=== PATIENT | male | born 1940 | race Caucasian/White ===

== ENCOUNTER 2017-02-14 07:56 | Inpatient (IN) | payer MEDICARE ==
--- NOTE | ~2017-02-14 | CN ---
Consultation Report [facility] [address] [place]. [address] NAME: RAFAELA HERNDON : 40 STATUS : ADM IN PAT#: [id number] AGE: 76 ADM/REG DATE : 02/14/17 MR#: [id number] REPORT SERV DATE: 02/15/17 DICTATED BY: DUSTY ZAVALETA DATE: 02/14/17 REPORT STATUS : Draft TRANSCRIBED BY: MODL DATE: 02/14/17 CONSULTATION NOTE DATE OF CONSULTATION: 02/14/2017 REASON FOR CONSULTATION: Coronary artery disease, severe aortic stenosis with recent near syncopal episode. ATTENDING INFLATABLE BUILDINGS LAMINATOR: Sesar Drew M.D. CHIEF COMPLAINT: "I nearly passed out." HISTORY OF PRESENT ILLNESS: This is a 76-year-old very active gentleman who has known history of coronary artery disease, previous myocardial infarction in 2011, aortic stenosis, and anxiety disorder. He has had recent increase in his symptoms and was referred for echocardiogram, which was abnormal showing severe aortic stenosis. He also had carotid ultrasound that did not show any significant carotid disease. He underwent coronary arteriogram today that demonstrated a tight proximal stenosis of the left anterior descending and the diagonal branch. His other coronaries did not have any flow-limiting or obstructive disease. We were asked to see for urgent coronary artery bypass grafting as well as aortic valve replacement, this was discussed with the patient and his family by Dr. Sotelo today. PRIOR MEDICAL HISTORY: 1. Hypertension. 2. Hypercholesterolemia. 3. Gastroesophageal reflux disease. 4. Hard of hearing. 5. Prior elevation myocardial infarction in 2011. 6. Hyperlipidemia. PRIOR SURGICAL HISTORY: Prior heart catheterization in 2011. ALLERGIES: NONE KNOWN. MEDICATIONS AT HOME: Include amlodipine 10 mg p.o. daily, aspirin 81 mg p.o. b.i.d., atorvastatin 20 mg p.o. q.a.m., hydrochlorothiazide 25 mg p.o. daily, melatonin 5 mg p.o. at h.s., nitroglycerin 0.4 mg sublingual p.r.n., Prilosec 20 mg p.o. daily, and Zoloft 100 mg p.o. daily. FAMILY HISTORY: Significant for father with hypertension, hypercholesterolemia, at age 52; mother with hypertension, high cholesterol, at age 48; and two brothers and three sisters who had heart disease, hypertension, high cholesterol. Consultation Report [facility] [address] [place]. 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 His two daughters are with him today. REVIEW OF SYSTEMS: GENERAL: Negative for any recent weight change, fevers, chills, night sweats, or malaise. HEENT: Positive for recent eye surgeries, hard of hearing, upper dentures, and missing teeth in the lower jaw. NECK: He reports discomfort in his neck after exerting himself, mainly on the right side. CV: Positive for palpitations, heart murmur, aortic stenosis, prior CO, negative for chest pain, syncope, orthopnea, or paroxysmal nocturnal dyspnea. RESPIRATORY: Positive for some shortness of breath. Negative for hemoptysis, wheezing, or chronic cough. GI: Positive for gastroesophageal reflux. Negative for bleeding in stool. Negative for ulcers, constipation, or diarrhea. : Negative. MUSCULOSKELETAL: Positive for back pain and neck pain. Positive for early arthritis. NEUROLOGIC: Negative for stroke. Negative for TIAs or symptoms of amaurosis fugax. HEME/ONC: Positive for skin cancers. Negative for any history of free bleeding, blood clots, or easy bruising. ENDOCRINE: Negative for hypothyroidism or hyperthyroidism. Negative for diabetes. PHYSICAL EXAMINATION: GENERAL: He is a pleasant elderly male, sitting upright in bed, in no acute distress. His height is 175.26 cm and weight 76.31 kg. VITAL SIGNS: Blood pressure 141/64; temperature 97.6; pulse 56 and regular; respirations 18, regular and unlabored; and saturation is 95%. HEENT: Normocephalic and atraumatic. Pupils are equal, round, reactive to light and accommodation. Sclerae are clear. Conjunctivae are pink. Oral and buccal mucosa are pink and moist. He is missing many of his lower teeth. I do not see any abscesses. Mallampati class II airway. NECK: Supple. No restricted range of motion. No carotid bruits, although radiated murmurs heard in both carotids. No jugular venous distention. CHEST: No deformity. Clear to auscultation. No use of accessory muscles. BREASTS: Not examined. CV: Regular rate and rhythm with aortic systolic murmur heard across the precordium, but best in the second intercostal space, right sternal border. He has palpable symmetric central and peripheral pulses. No clubbing, cyanosis, or edema. ABDOMEN: Soft and nontender with normoactive bowel sounds. No hepatosplenomegaly. /RECTAL: Declined. MUSCULOSKELETAL: No kyphoscoliosis. No asymmetry. NEUROLOGIC: He is a good historian. Speech is clear, fluent. No focal deficits. No tremors. DATA: His coronary arteriogram today shows tight flow-limiting disease in the proximal left anterior descending and the proximal diagonal branch. There is echocardiogram showing trace Consultation Report [address] [address] NAME: RAFAELA HERNDON : 40 STATUS : ADM IN [facility]#: [id number] AGE: 76 ADM/REG DATE : 02/14/17 MR#: [id number] REPORT SERV DATE: 02/15/17 DICTATED BY: DUSTY ZAVALETA DATE: 02/14/17 REPORT STATUS : Draft TRANSCRIBED BY: LAURA DATE: 02/14/17 mitral and tricuspid regurgitation, and severe aortic stenosis with aortic valve area of 0.55 by Shelly. His EKG showed sinus rhythm with incomplete right bundle-branch block. His carotid ultrasound shows grade 1 disease bilaterally. CURRENT LABS: Sodium 141, potassium 3.6, chloride 106, CO2 of 27, BUN 19, creatinine 1.1, and nonfasting glucose is 112. His CBC shows WBC 6.3, hemoglobin 15.9 g, hematocrit 46.3%, and platelets 214,000. IMPRESSION: Single vessel flow-limiting coronary artery disease and severe aortic stenosis, with recent near syncopal episode. We were asked to see for possible urgent coronary artery bypass grafting and aortic valve replacement, this was discussed at length with the patient and his family today. We talked about the surgery, usual perioperative course, indications, benefits, and serious risks. These can include but are not limited to, things such as bleeding, infection, pneumonia, blood transfusions and their attendant risks, damage to the kidneys including kidney failure and dialysis, damage to the liver and the lungs, heart attack, stroke, abnormal heart rhythm, need for pacemaker, deep sternal infection, mediastinitis, and even . The patient indicates his understanding and is willing to proceed. Tentative plan includes coronary artery bypass grafting and aortic valve replacement tomorrow. The choice of valve selection was discussed with the patient by Dr. Sotelo. In addition, Society of Thoracic Surgeons Database for risk prediction, predicted mortality risk of 1.6%, morbidity or mortality of 12.8% which are not elevated. We appreciate very much the opportunity to participate in this pleasant gentleman's care. COOPER/LAURA Dusty Zavaleta N.P. / [id number] CC: Jose Dutton M.D.
--- NOTE | ~2017-02-14 | OP ---
Record Of Operation [facility] [address] [place]. [address] NAME: RAFAELA HERNDON : 40 STATUS : ADM IN PAT#: [id number] AGE: 76 ADM/REG DATE : 02/14/17 MR#: [id number] REPORT SERV DATE: 02/18/17 DICTATED BY: CHANCE ARNDT DATE: 02/15/17 REPORT STATUS : Draft TRANSCRIBED BY: MODL DATE: 02/15/17 DATE OF PROCEDURE: ATTENDING PHYSICIAN: Chance Arndt MD. CHEMIST STEROIDS: SONDRA Aiken. ANESTHESIOLOGIST: Dano Carrasco M.D. REFERRING PHYSICIANS: Dr. Anthony Jiang and Dr. Sesar Drew. PREOPERATIVE DIAGNOSES: 1. Critical aortic stenosis. 2. One vessel coronary artery disease. 3. Hypertension. 4. Hyperlipidemia. POSTOPERATIVE DIAGNOSES: 1. Critical aortic stenosis. 2. One vessel coronary artery disease. 3. Hypertension. 4. Hyperlipidemia. OPERATION PROCEDURE PERFORMED: 1. Median sternotomy. 2. Extracorporeal circulation. 3. Aortic valve replacement with 21-mm Magna Ease valve. 4. Coronary artery bypass grafting x2, left internal mammary artery, left anterior descending artery, reverse greater saphenous vein graft to first diagonal. 5. LINCOLN. 6. Endoscopic vein harvest of right leg. COMPLICATIONS: None. TUBES AND DRAINS: Alsmku-swfc-Vufqfg Shawn left pleural space 32 straight mediastinal chest tube. Atrial and ventricular wires. POSTOPERATIVE CONDITION: Stable to CVICU. Total cardiopulmonary bypass time of 136 minutes. Total cross-clamp of 107 minutes. INTRAOPERATIVE FINDINGS: Transesophageal echo showed severe , mild AI, mild MR, EF approximately 60%. Post bypass, well-seated valve, no paravalvular leak. Mean gradient across the valve was 6 mmHg. There was preserved EF with preserved wall motion. ANATOMIC FINDINGS: Tricuspid aortic valve which is heavily calcified aortic valve leaflets and anulus, good ventricle, good conduit, excellent targets. The valve was sized to a 21-mm Record Of Operation [facility] [address] [facility] [place]. [address] NAME: RAFAELA HERNDON : 40 STATUS : ADM IN PAT#: [id number] AGE: 76 ADM/REG DATE : 02/14/17 MR#: [id number] REPORT SERV DATE: 02/18/17 DICTATED BY: CHANCE ARNDT DATE: 02/15/17 REPORT STATUS : Draft TRANSCRIBED BY: MODL DATE: 02/15/17 anulus. This correlated with a 21-mm anulus seen on echo. DETAILS OF VALVE REPLACEMENT: Aortic valve was replaced with 21 mm Anshul-Galeana Magna Ease bovine pericardial valve. The valve was sited in the supra-annular position with total of 16 2-0 pledgeted Ti-Cron sutures secured with Cor-Knots. Fifteen sutures were used initially and then after the valve was seated and all sutures were secured with Cor-Knots, there was one small area along the right coronary cusp that appeared to have the potential for a paravalvular leak. Another suture was placed into this with resolution of the area and this was secured again with a Cor-Knot. DETAILS OF CARDIOPULMONARY BYPASS GRAFTIN. Graft #1, left internal mammary artery, left anterior descending, this was a 2 mm target. There were excellent Doppler signals in the graft both pre and post protamine. 2. Graft #2, reverse greater saphenous vein graft to the first diagonal, this was 2 mm target. There were excellent Doppler signals both pre and post protamine. INDICATIONS FOR PROCEDURE: Mr. Herndon is a 76-year-old gentleman with a history of near syncopal episode from his aortic valve. He was found to have critical aortic stenosis with a valve area of approximately 0.6 cm2 and was brought to the geotechnical laboratory technician in preparation for aortic valve replacement. He was found to have significant left anterior descending and branch point diagonal disease, was kept in the hospital and referred for coronary artery bypass grafting and aortic valve replacement. Risks, benefits, and alternatives were discussed with the patient including, but not limited to bleeding, infection, stroke, , heart attack, need for future operations. All questions were answered. The STS risk was discussed with the patient. Mortality of 1.6% and morbidity mortality of 12.8%. DESCRIPTION OF PROCEDURE: The patient was brought to the operating room and placed supine on the operating table. After satisfactory induction of general endotracheal anesthesia, he was prepped and draped in the usual sterile fashion. Working simultaneously, a median sternotomy was performed while endoscopic vein harvest was performed of the right leg, right thigh. Skin and subcutaneous tissues were divided. Clavipectoral fascia was divided. Sternum was divided in the midline. Sternal retractor was placed. Hemostasis had been obtained. Thymic tissue opened in the midline. Sternum up to the innominate vein. Pericardium was opened in the midline and a long diaphragm. A Rultract retractor was then placed and the internal mammary artery was harvested in a pedicle fashion from its takeoff under the subclavian vein at the bifurcation of the diaphragm. It was infiltrated with papaverine and wrapped in a papaverine soaked sponge. Systemic heparinization was achieved. After three minutes, the pedicle was clipped and divided at the bifurcation of the diaphragm. Hemostasis was obtained. A 24-Kyrgyz Shawn was placed in the left pleural space and exteriorized. Rultract retractor was removed. Sternal retractor was placed. Pericardial well was created. Ascending aorta was cannulated high on the ascending aorta. Dual stage venous cannula was placed. Antegrade root vent cardioplegia tack was placed on the ascending aorta and a coronary sinus catheter was placed in the coronary sinus through a pursestring in the right atrial side wall. Conduit was inspected and prepared for bypass. Internal mammary artery was brought down through a wide V in the pericardium. The cardiopulmonary bypass was initiated after documentation of an adequate ACT. The targets were inspected and felt to be appropriate for bypass. A cross-clamp was brought up and the Record Of Operation [address] [place]. [address] NAME: RAFAELA HERNDON : 40 STATUS : ADM IN [facility]#: [id number] AGE: 76 ADM/REG DATE : 02/14/17 MR#: [id number] REPORT SERV DATE: 02/18/17 DICTATED BY: CHANCE ARNDT DATE: 02/15/17 REPORT STATUS : Draft TRANSCRIBED BY: MODBrock DATE: 02/15/17 heart was arrested with cold antegrade cardioplegia for a total of 800 and 400 mL of retrograde cardioplegia was administered. Intermittent antegrade and retrograde cardioplegia was administered every 15 to 20 minutes throughout the remainder of the cross clamp. Both post groups were performed as mentioned. The distal super was performed as mentioned in the findings. There was excellent flow in the LAD after removal of the bulldog. There was good flow in the LAD and in the mammary. The bulldog was replaced. The pedicle was attached hard in two places and attention was turned to the aortic root. A standard oblique aortotomy was performed. Aortic retraction sutures were placed. The valve was inspected. The valve was trileaflet heavily calcified. The valve leaflets were excised. The calcium was debrided. The anulus was sized. The valve was sized to a 21 mm Magna Ease valve. Fifteen pledgeted valve sutures were placed one in each commissure and four long each cusp. These were then passed through the sewing ring of the Magna Ease bovine pericardial valve and then the valve was lowered into position. Cor-Knots were anchored. The valve was inspected. It was felt to be well seated, however, there was one small area that was felt to potentially have a gap. A suture was then passed from the anulus up to the sewing ring of the valve. Pledgeted suture and then secured with Cor-Knot. This obliterated this area. The aortotomy was then closed in two layers using pledgeted at the corners 4-0 Prolene. An aortotomy was then performed after sweeping off the ascending aorta with a small area of adventitia. This was done with an 11 blade and enlarged with a 5.2 mm punch. The vein was cut to length, spatulated, and a running continuous anastomosis was performed using 6-0 Prolene. Vein graft marker was placed and the graft was de-aired and the cross-clamp was removed. Atrial and ventricular pacing wires were placed. The patient was ultimately able to be weaned from cardiopulmonary bypass in a paced atrial rhythm. The protamine was administered. The patient was decannulated after protamine was administered. All cannulation sites were oversewn with 4-0 Prolene. Hemostasis was obtained. Pericardium was loosely reapproximated over the ascending aorta and the ventricle. The sternum was then re-approximated using stainless steel sternal wires. A 32- Kyrgyz chest tube was then placed under the sternum. Some of these wires were double wires. Clavipectoral fascia was reapproximated using running #1 Stratafix, subcutaneous tissues closed using running #1 Stratafix, and the skin closed using 3-0 Monocryl. Dry sterile dressings were placed. The patient was transferred to the CVICU in critical stable condition. ROSANGELA/MODL Chance Arndt MD / [id number] CC: Jose Dutton M.D. William Warren, M.D.
[~2017-02-14 07:56] MED LIST: ASAB PO; HYDROCHLOROT25 MG PO; LIPITOR20 PO; MELATONIN5 M1 PO; NITROSTAT0.4 MG SL; NORV10 PO; PREV15 PO; PRILO PO; ZOL100 PO
[2017-02-14 08:56] LABS: BUN (BLOOD UREA NITROGEN) 19 MG/DL (6-23); CALCIUM, SERUM 8.9 MG/DL (8.5-10.4); CHLORIDE, SERUM 106 MMOL/L (96-112); CHOL/HDL RATIO(NOT ORDER) 2.5 (0-5); CHOLESTEROL 127 MG/DL (< 200); CO2 (CARBON DIOXIDE) 27 MMOL/L (24-34); GFR AFRICAN AMERICAN 75 ML/MIN (>=60); GFR NON AFRICAN AMERICAN 65 ML/MIN (>=60); GLUCOSE, SERUM 112 MG/DL (60-99); HDL CHOLESTEROL 51 MG/DL (> 39); LDL CHOLESTEROL 62 MG/DL (< 130); NON-HDL CHOLESTEROL 76 MG/DL (< 160); POTASSIUM, SERUM 3.6 MMOL/L (3.5-5.3); SODIUM, SERUM 141 MMOL/L (135-148); TRIGLYCERIDE 70 MG/DL (< 150)
[2017-02-14 09:05] LABS: BASOPHILS 0.5 %; BASOPHILS ABSOLUTE 0.03 10/3/uL (0.0-0.16); EOSINOPHILS ABSOLUTE 0.19 10/3/uL (0.0-0.53); HEMATOCRIT 46.3 % (40.0-51.0); HEMOGLOBIN 15.9 g/dL (13.6-17.8); IMMATURE GRANULOCYTES 0.2 %; IMMATURE GRANULOCYTES ABSOLUTE 0.01 10/3/uL (0.0-0.11); LYMPHOCYTES 36.1 %; LYMPHOCYTES ABSOLUTE 2.29 10/3/uL (0.67-4.30); MEAN CORPUS HGB CONC 34.3 g/dL (32.0-36.0); MEAN CORPUSCULAR HEMOGLOB 30.9 pg (26.0-34.0); MONOCYTES 10.9 %; MONOCYTES ABSOLUTE 0.69 10/3/uL (0.21-1.20); NEUTROPHILS 49.3 %; NEUTROPHILS ABSOLUTE 3.13 10/3/uL (2.02-8.40); PLATELET COUNT 214 10/3/uL (150-400); RBC DISTRIBUTION WIDTH 13.9 % (12.0-16.0); RED CELL COUNT 5.15 10/6/uL (4.7-6.1); WHITE BLOOD CELLS 6.3 10/3/uL (4.5-10.5)
[2017-02-14 09:06] LABS: MANUAL DIFF NO %; MEAN CORPUSCULAR VOLUME 89.9 fL (80-100)
[2017-02-14 22:47] LABS: ASCORBIC ACID (UR NOT ORDER) 20 (NEG); BILIRUBIN, URINE NEGATIVE (NEG); KETONE, URINE NEGATIVE (NEG); LEUKOCYTE ESTERASE(NOT OR NEG (NEG); WBC (NOT ORDERED) (RFLEX) 1 (0-5)
[2017-02-15 03:04] LABS: BASOPHILS 0.3 %; BASOPHILS ABSOLUTE 0.02 10/3/uL (0.0-0.16); EOSINOPHILS 2.5 %; EOSINOPHILS ABSOLUTE 0.19 10/3/uL (0.0-0.53); HEMOGLOBIN 13.5 g/dL (13.6-17.8); IMMATURE GRANULOCYTES 0.1 %; IMMATURE GRANULOCYTES ABSOLUTE 0.01 10/3/uL (0.0-0.11); LYMPHOCYTES 22.4 %; LYMPHOCYTES ABSOLUTE 1.69 10/3/uL (0.67-4.30); MEAN CORPUS HGB CONC 33.7 g/dL (32.0-36.0); MEAN CORPUSCULAR HEMOGLOB 30.4 pg (26.0-34.0); MEAN CORPUSCULAR VOLUME 90.3 fL (80-100); MEAN PLATELET VOLUME 11.2 fL (9.2-13.0); MONOCYTES 8.9 %; MONOCYTES ABSOLUTE 0.67 10/3/uL (0.21-1.20); NEUTROPHILS 65.8 %; NEUTROPHILS ABSOLUTE 4.97 10/3/uL (2.02-8.40); PLATELET COUNT 186 10/3/uL (150-400); RBC DISTRIBUTION WIDTH 14.2 % (12.0-16.0); RED CELL COUNT 4.44 10/6/uL (4.7-6.1); WHITE BLOOD CELLS 7.6 10/3/uL (4.5-10.5)
[2017-02-15 03:05] LABS: HEMATOCRIT 40.1 % (40.0-51.0); MANUAL DIFF NO %
[2017-02-15 03:12] LABS: PROTIME (NOT ORD) 13.5 SEC (12.0-14.5)
[2017-02-15 03:18] LABS: % IRON SAT 12 % (20-50); ALKALINE PHOSPHATASE 90 U/L (45-117); BUN (BLOOD UREA NITROGEN) 19 MG/DL (6-23); CHLORIDE, SERUM 109 MMOL/L (96-112); CO2 (CARBON DIOXIDE) 27 MMOL/L (24-34); CREATININE 0.99 MG/DL (0.70-1.30); GFR AFRICAN AMERICAN 85 ML/MIN (>=60); GFR NON AFRICAN AMERICAN 74 ML/MIN (>=60); GLOBULIN 3.1 G/DL (2.5-4.1); GLUCOSE, SERUM 102 MG/DL (60-99); IRON BINDING CAPACITY 276 MCG/DL (250-450); IRON, SERUM 34 MCG/DL (35-150); POTASSIUM, SERUM 3.6 MMOL/L (3.5-5.3); SGOT(AST) 19 U/L (5-40); SGPT(ALT) 21 U/L (5-65); SODIUM, SERUM 144 MMOL/L (135-148); TOTAL BILIRUBIN 0.4 MG/DL (0-1.2); TOTAL PROTEIN 6.2 G/DL (6.0-8.5)
[2017-02-15 03:20] LABS: ALBUMIN 3.1 G/DL (3.5-5.0)
[2017-02-15 18:59] LABS: CARBOXYHEMOGLOBIN 0.3 % (0-3); HCO3 (ACTUAL BICARBONATE) 20.7 MEQ/L (23-27); HEMOBLOGIN CONTENT 12.9 G/DL (14-18); INSTRUMENT SERIAL # 11843; METHEMOGLOBIN 0.5 % (0-3); MODE SIMV; O2 CONTENT 18.6 VOL% (18-24); OPERATOR ID 32193; PCO2 (CO2 TENSION) 33 MMHG (35-45); PO2 (O2 TENSION) 311 MMHG (79-93); SAMPLE Arterial; TIDAL VOLUME 700 ML; pH 7.42 (7.37-7.43)
[2017-02-15 19:09] LABS: HEMATOCRIT 34.5 % (40.0-51.0); PLATELET COUNT 101 10/3/uL (150-400)
[2017-02-15 19:17] LABS: INTERNATIONAL NORMAL RATI 1.6 UNITS (-)
[2017-02-15 19:18] LABS: FIBRINOGEN 227 MG/DL (230-462); PROTIME (NOT ORD) 18.5 SEC (12.0-14.5)
[2017-02-15 19:22] LABS: BUN (BLOOD UREA NITROGEN) 16 MG/DL (6-23); CALCIUM, SERUM 7.9 MG/DL (8.5-10.4); CHLORIDE, SERUM 116 MMOL/L (96-112); CREATININE 1.16 MG/DL (0.70-1.30); GFR AFRICAN AMERICAN 71 ML/MIN (>=60); GFR NON AFRICAN AMERICAN 61 ML/MIN (>=60); SODIUM, SERUM 147 MMOL/L (135-148)
[2017-02-15 19:26] LABS: CO2 (CARBON DIOXIDE) 22 MMOL/L (24-34); GLUCOSE, SERUM 75 MG/DL (60-99)
[2017-02-15 22:50] LABS: HEMOGLOBIN 11.6 g/dL (13.6-17.8)
[2017-02-15 23:03] LABS: CALCIUM, SERUM 7.9 MG/DL (8.5-10.4); POTASSIUM, SERUM 4.5 MMOL/L (3.5-5.3)
[2017-02-15 23:34] LABS: BE (BASE EXCESS) -6.4 MEQ/L (0 +/- 2.5); CARBOXYHEMOGLOBIN 0.3 % (0-3); DEVICE NC; HCO3 (ACTUAL BICARBONATE) 18.9 MEQ/L (23-27); HEMOBLOGIN CONTENT 12.1 G/DL (14-18); INSTRUMENT SERIAL # 11843; METHEMOGLOBIN 0.4 % (0-3); O2 CONTENT 16.5 VOL% (18-24); OPERATOR ID 32193; PCO2 (CO2 TENSION) 37 MMHG (35-45); PO2 (O2 TENSION) 106 MMHG (79-93); SAMPLE Arterial; pH 7.33 (7.37-7.43)
[2017-02-16 03:39] LABS: HEMATOCRIT 29.6 % (40.0-51.0); HEMOGLOBIN 10.1 g/dL (13.6-17.8); MANUAL DIFF YES %; MEAN CORPUS HGB CONC 34.1 g/dL (32.0-36.0); MEAN CORPUSCULAR VOLUME 90.8 fL (80-100); MEAN PLATELET VOLUME 11.1 fL (9.2-13.0); PLATELET COUNT 106 10/3/uL (150-400); RBC DISTRIBUTION WIDTH 14.2 % (12.0-16.0); RED CELL COUNT 3.26 10/6/uL (4.7-6.1); WHITE BLOOD CELLS 13.2 10/3/uL (4.5-10.5)
[2017-02-16 03:51] LABS: BUN (BLOOD UREA NITROGEN) 23 MG/DL (6-23); CALCIUM, SERUM 7.8 MG/DL (8.5-10.4); CHLORIDE, SERUM 116 MMOL/L (96-112); CO2 (CARBON DIOXIDE) 19 MMOL/L (24-34); CREATININE 1.19 MG/DL (0.70-1.30); GFR AFRICAN AMERICAN 68 ML/MIN (>=60); GFR NON AFRICAN AMERICAN 59 ML/MIN (>=60); POTASSIUM, SERUM 4.3 MMOL/L (3.5-5.3); SODIUM, SERUM 146 MMOL/L (135-148)
[2017-02-16 03:52] LABS: GLUCOSE, SERUM 106 MG/DL (60-99)
[2017-02-16 04:05] LABS: BAND NEUTROPHILS 6 %; LYMPHOCYTES 3 %; PLATELET ESTIMATE DEC (ADEQUATE); RBC MORPHOLOGY NORM (NORMAL); SEGMENTED NEUTROPHIL (0) 91 %; TOTAL NUCLEATED CELLS 100
[2017-02-16 05:11] LABS: INTERNATIONAL NORMAL RATI 1.5 UNITS (-); PROTIME (NOT ORD) 17.7 SEC (12.0-14.5)
[2017-02-16 16:52] LABS: HEMATOCRIT 29.8 % (40.0-51.0); HEMOGLOBIN 10.2 g/dL (13.6-17.8)
[2017-02-16 17:04] LABS: POTASSIUM, SERUM 4.4 MMOL/L (3.5-5.3)
[2017-02-17 03:46] LABS: BASOPHILS 0.1 %; BASOPHILS ABSOLUTE 0.01 10/3/uL (0.0-0.16); EOSINOPHILS 0.1 %; EOSINOPHILS ABSOLUTE 0.01 10/3/uL (0.0-0.53); HEMATOCRIT 31.5 % (40.0-51.0); HEMOGLOBIN 10.6 g/dL (13.6-17.8); IMMATURE GRANULOCYTES 0.4 %; IMMATURE GRANULOCYTES ABSOLUTE 0.07 10/3/uL (0.0-0.11); LYMPHOCYTES ABSOLUTE 1.56 10/3/uL (0.67-4.30); MEAN CORPUS HGB CONC 33.7 g/dL (32.0-36.0); MEAN CORPUSCULAR HEMOGLOB 31.2 pg (26.0-34.0); MEAN CORPUSCULAR VOLUME 92.6 fL (80-100); MEAN PLATELET VOLUME 12.3 fL (9.2-13.0); MONOCYTES 7.2 %; MONOCYTES ABSOLUTE 1.26 10/3/uL (0.21-1.20); NEUTROPHILS 83.2 %; NEUTROPHILS ABSOLUTE 14.51 10/3/uL (2.02-8.40); RBC DISTRIBUTION WIDTH 15.2 % (12.0-16.0); WHITE BLOOD CELLS 17.4 10/3/uL (4.5-10.5)
[2017-02-17 03:48] LABS: PLATELET COUNT 182 10/3/uL (150-400)
[2017-02-17 03:49] LABS: MANUAL DIFF NO %
[2017-02-17 03:57] LABS: CALCIUM, SERUM 8.1 MG/DL (8.5-10.4); CO2 (CARBON DIOXIDE) 20 MMOL/L (24-34); GFR AFRICAN AMERICAN 52 ML/MIN (>=60); GFR NON AFRICAN AMERICAN 45 ML/MIN (>=60)
[2017-02-17 03:58] LABS: BUN (BLOOD UREA NITROGEN) 38 MG/DL (6-23); CHLORIDE, SERUM 105 MMOL/L (96-112); GLUCOSE, SERUM 167 MG/DL (60-99); SODIUM, SERUM 134 MMOL/L (135-148)
[2017-02-18 03:41] LABS: BASOPHILS 0.1 %; BASOPHILS ABSOLUTE 0.01 10/3/uL (0.0-0.16); EOSINOPHILS 0.2 %; EOSINOPHILS ABSOLUTE 0.02 10/3/uL (0.0-0.53); HEMATOCRIT 29.5 % (40.0-51.0); HEMOGLOBIN 10.1 g/dL (13.6-17.8); IMMATURE GRANULOCYTES 0.3 %; IMMATURE GRANULOCYTES ABSOLUTE 0.04 10/3/uL (0.0-0.11); LYMPHOCYTES 14.1 %; LYMPHOCYTES ABSOLUTE 1.75 10/3/uL (0.67-4.30); MEAN CORPUS HGB CONC 34.2 g/dL (32.0-36.0); MEAN CORPUSCULAR HEMOGLOB 31.4 pg (26.0-34.0); MEAN CORPUSCULAR VOLUME 91.6 fL (80-100); MEAN PLATELET VOLUME 11.7 fL (9.2-13.0); MONOCYTES 9.3 %; MONOCYTES ABSOLUTE 1.15 10/3/uL (0.21-1.20); NEUTROPHILS ABSOLUTE 9.42 10/3/uL (2.02-8.40); PLATELET COUNT 129 10/3/uL (150-400); RBC DISTRIBUTION WIDTH 14.6 % (12.0-16.0); RED CELL COUNT 3.22 10/6/uL (4.7-6.1); WHITE BLOOD CELLS 12.4 10/3/uL (4.5-10.5)
[2017-02-18 03:48] LABS: MANUAL DIFF NO %
[2017-02-18 04:09] LABS: BUN (BLOOD UREA NITROGEN) 44 MG/DL (6-23); CALCIUM, SERUM 8.1 MG/DL (8.5-10.4); CHLORIDE, SERUM 104 MMOL/L (96-112); CO2 (CARBON DIOXIDE) 20 MMOL/L (24-34); CREATININE 1.19 MG/DL (0.70-1.30); GFR AFRICAN AMERICAN 68 ML/MIN (>=60); GFR NON AFRICAN AMERICAN 59 ML/MIN (>=60); GLUCOSE, SERUM 135 MG/DL (60-99); POTASSIUM, SERUM 4.4 MMOL/L (3.5-5.3); SODIUM, SERUM 134 MMOL/L (135-148)
[2017-02-19 06:51] LABS: BASOPHILS 0 %; EOSINOPHILS 0.3 %; EOSINOPHILS ABSOLUTE 0.03 10/3/uL (0.0-0.53); HEMATOCRIT 28.9 % (40.0-51.0); IMMATURE GRANULOCYTES 0.3 %; IMMATURE GRANULOCYTES ABSOLUTE 0.03 10/3/uL (0.0-0.11); LYMPHOCYTES 7.4 %; LYMPHOCYTES ABSOLUTE 0.87 10/3/uL (0.67-4.30); MANUAL DIFF NO %; MEAN CORPUS HGB CONC 34.6 g/dL (32.0-36.0); MEAN CORPUSCULAR HEMOGLOB 31.3 pg (26.0-34.0); MEAN CORPUSCULAR VOLUME 90.3 fL (80-100); MEAN PLATELET VOLUME 11.7 fL (9.2-13.0); MONOCYTES 9.3 %; MONOCYTES ABSOLUTE 1.09 10/3/uL (0.21-1.20); NEUTROPHILS 82.7 %; NEUTROPHILS ABSOLUTE 9.69 10/3/uL (2.02-8.40); PLATELET COUNT 170 10/3/uL (150-400); RBC DISTRIBUTION WIDTH 14.5 % (12.0-16.0); WHITE BLOOD CELLS 11.7 10/3/uL (4.5-10.5)
[2017-02-19 07:05] LABS: BUN (BLOOD UREA NITROGEN) 42 MG/DL (6-23); CALCIUM, SERUM 8.1 MG/DL (8.5-10.4); CHLORIDE, SERUM 103 MMOL/L (96-112); CREATININE 1.05 MG/DL (0.70-1.30); GFR AFRICAN AMERICAN 80 ML/MIN (>=60); GFR NON AFRICAN AMERICAN 69 ML/MIN (>=60); GLUCOSE, SERUM 118 MG/DL (60-99); SODIUM, SERUM 136 MMOL/L (135-148)
[2017-02-19 07:06] LABS: CO2 (CARBON DIOXIDE) 26 MMOL/L (24-34)
[2017-02-20 05:02] LABS: BASOPHILS 0.1 %; BASOPHILS ABSOLUTE 0.01 10/3/uL (0.0-0.16); EOSINOPHILS 2.2 %; EOSINOPHILS ABSOLUTE 0.21 10/3/uL (0.0-0.53); HEMATOCRIT 27.4 % (40.0-51.0); HEMOGLOBIN 9.5 g/dL (13.6-17.8); IMMATURE GRANULOCYTES 0.4 %; IMMATURE GRANULOCYTES ABSOLUTE 0.04 10/3/uL (0.0-0.11); LYMPHOCYTES ABSOLUTE 1.26 10/3/uL (0.67-4.30); MEAN CORPUS HGB CONC 34.7 g/dL (32.0-36.0); MEAN CORPUSCULAR VOLUME 89.5 fL (80-100); MEAN PLATELET VOLUME 10.9 fL (9.2-13.0); MONOCYTES ABSOLUTE 1.07 10/3/uL (0.21-1.20); NEUTROPHILS 73.3 %; PLATELET COUNT 216 10/3/uL (150-400); RBC DISTRIBUTION WIDTH 14.7 % (12.0-16.0); RED CELL COUNT 3.06 10/6/uL (4.7-6.1); WHITE BLOOD CELLS 9.7 10/3/uL (4.5-10.5)
[2017-02-20 05:03] LABS: MANUAL DIFF NO %
[2017-02-20 05:15] LABS: BUN (BLOOD UREA NITROGEN) 39 MG/DL (6-23); CALCIUM, SERUM 7.9 MG/DL (8.5-10.4); CHLORIDE, SERUM 102 MMOL/L (96-112); CO2 (CARBON DIOXIDE) 27 MMOL/L (24-34); GFR AFRICAN AMERICAN 84 ML/MIN (>=60); GFR NON AFRICAN AMERICAN 73 ML/MIN (>=60); GLUCOSE, SERUM 109 MG/DL (60-99); POTASSIUM, SERUM 3.6 MMOL/L (3.5-5.3); SODIUM, SERUM 136 MMOL/L (135-148)
[2017-02-21 06:38] LABS: BASOPHILS 0.1 %; BASOPHILS ABSOLUTE 0.01 10/3/uL (0.0-0.16); EOSINOPHILS 2.6 %; EOSINOPHILS ABSOLUTE 0.24 10/3/uL (0.0-0.53); HEMATOCRIT 27.8 % (40.0-51.0); HEMOGLOBIN 9.6 g/dL (13.6-17.8); IMMATURE GRANULOCYTES 0.5 %; IMMATURE GRANULOCYTES ABSOLUTE 0.05 10/3/uL (0.0-0.11); LYMPHOCYTES 14.3 %; MEAN CORPUS HGB CONC 34.5 g/dL (32.0-36.0); MEAN CORPUSCULAR HEMOGLOB 31.2 pg (26.0-34.0); MEAN CORPUSCULAR VOLUME 90.3 fL (80-100); MEAN PLATELET VOLUME 10.5 fL (9.2-13.0); NEUTROPHILS 71.5 %; NEUTROPHILS ABSOLUTE 6.52 10/3/uL (2.02-8.40); PLATELET COUNT 258 10/3/uL (150-400); RBC DISTRIBUTION WIDTH 14.5 % (12.0-16.0); RED CELL COUNT 3.08 10/6/uL (4.7-6.1); WHITE BLOOD CELLS 9.1 10/3/uL (4.5-10.5)
[2017-02-21 06:48] LABS: MANUAL DIFF NO %
[2017-02-21 07:03] LABS: CALCIUM, SERUM 8.2 MG/DL (8.5-10.4); CHLORIDE, SERUM 101 MMOL/L (96-112); CO2 (CARBON DIOXIDE) 28 MMOL/L (24-34); CREATININE 1.05 MG/DL (0.70-1.30); GFR AFRICAN AMERICAN 80 ML/MIN (>=60); GFR NON AFRICAN AMERICAN 69 ML/MIN (>=60); GLUCOSE, SERUM 98 MG/DL (60-99); POTASSIUM, SERUM 3.5 MMOL/L (3.5-5.3); SODIUM, SERUM 138 MMOL/L (135-148)
[2017-02-21 07:06] LABS: BUN (BLOOD UREA NITROGEN) 32 MG/DL (6-23)
[2017-02-21] MEDS ORDERED: HALF81 PO (08:51)
[2017-02-21] MEDS ORDERED: LIPITOR40 PO (08:52)
[2017-02-21] MEDS ORDERED: LOP25 PO (08:53)
[2017-02-21] MEDS ORDERED: L40 PO (08:54)
[2017-02-21] MEDS ORDERED: PRIN10 PO (08:55)
[2017-02-21] MEDS ORDERED: KLOR-CON20 MEQ PO (08:55)
[2017-02-21] MEDS ORDERED: COUMADIN3 MG PO (10:16)
[2017-02-21] MEDS ORDERED: NORCO1 TA1 PO (10:21)
[2017-02-21] MEDS ORDERED: P5 PO (10:22)
== END 2017-02-21 14:04 | disposition home or self-care (01) | DRG 216 ==
LOC: CORLMH 07:56 → SSU1 08:09 → SDC/OF 02-15 09:54 → CVICU 02-15 14:42 → 5NO 02-18 17:30
PROVIDERS: Anesthesiology; Internal Medicine Cardiovascular Disease; Nurse Practitioner Family; Thoracic Surgery (Cardiothoracic Vascular Surgery)
PROC: 4A023N7 Measurement of Cardiac Sampling and Pressure, Left Heart, Percutaneous Approach (ICD-10-PCS; 2017-02-14)
PROC: B2111ZZ Fluoroscopy of Multiple Coronary Arteries using Low Osmolar Contrast (ICD-10-PCS; 2017-02-14)
PROC: B2151ZZ Fluoroscopy of Left Heart using Low Osmolar Contrast (ICD-10-PCS; 2017-02-14)
PROC: 02100Z9 Bypass Coronary Artery, One Artery from Left Internal Mammary, Open Approach (ICD-10-PCS; 2017-02-15)
PROC: 06BP0ZZ Excision of Right Saphenous Vein, Open Approach (ICD-10-PCS; 2017-02-15)
PROC: 5A1221Z Performance of Cardiac Output, Continuous (ICD-10-PCS; 2017-02-15)
PROC: B246ZZ4 Ultrasonography of Right and Left Heart, Transesophageal (ICD-10-PCS; 2017-02-15)
PROC: 021009W Bypass Coronary Artery, One Artery from Aorta with Autologous Venous Tissue, Open Approach (ICD-10-PCS; principal; 2017-02-15 12:30)
PROC: 02RF08Z Replacement of Aortic Valve with Zooplastic Tissue, Open Approach (ICD-10-PCS; 2017-02-15 12:30)
DX: I35.0 Nonrheumatic aortic (valve) stenosis (principal); J95.1 Acute pulmonary insufficiency following thoracic surgery; N17.9 Acute kidney failure, unspecified; J90 Pleural effusion, not elsewhere classified; I65.23 Occlusion and stenosis of bilateral carotid arteries; I10 Essential (primary) hypertension; I25.10 Atherosclerotic heart disease of native coronary artery without angina pectoris; E78.5 Hyperlipidemia, unspecified; I25.2 Old myocardial infarction; F41.9 Anxiety disorder, unspecified; K21.9 Gastro-esophageal reflux disease without esophagitis; Z79.82 Long term (current) use of aspirin
CPT/HCPCS: 36415; 71010; 71020; 80048; 80053; 80061; 81001; 82310; 82330; 82803; 82805; 82947; 82962; 83036; 83540; 83550; 83735; 84132; 84295; 85014; 85018; 85025; 85049; 85347; 85384; 85610; 85730; 86850; 86900; 86901; 86920; 87641; 88305; 88311; 93005; 93312; 93320; 93325; 93460; 93880; 94002; 94640; 94660; 94770; 97110-GP; 97116-GP; 97161-GP; 99152; 99153; A9270-GY; C1713; C1725; C1751; C1769; C1781; C1894; J0282; J0690; J1885; J1940; J2150; J2250; J2274; J2370; J2405; J2440; J2720; J2795; J2930; J3010; J3370; J3475; J3480; P9045; P9047; Q9967